=== PATIENT | female | born 1935 | race Caucasian/White ===

== ENCOUNTER 2016-05-15 13:16 | Outpatient (CLI) | payer MEDICARE, OTHER | END 2016-05-15 13:17 | disposition home or self-care (01) | DX: R01.2 Other cardiac sounds (principal) ==

== ENCOUNTER 2016-07-05 11:31 | Outpatient (CLI) | payer MEDICARE, OTHER | END 2016-07-05 11:32 | disposition home or self-care (01) | DX: S42.295A Other nondisplaced fracture of upper end of left humerus, initial encounter for closed fracture (principal) ==

== ENCOUNTER 2017-01-05 13:17 | Outpatient (CLI) | payer MEDICARE, OTHER ==
[2017-01-05] MEDS ORDERED: ALBUTEROL NEB 2.5 MG/3 ML INH SCH (14:00)
== END 2017-01-05 13:18 | disposition home or self-care (01) ==
LOC: RT 13:17
PROVIDERS: ATTEND Internal Medicine
DX: R05 Cough (principal)
CPT/HCPCS: 94060; J7613

== ENCOUNTER 2017-02-13 10:54 | Outpatient (CLI) | payer MEDICARE, OTHER ==
[~2017-02-13 10:54] MED LIST: IOPAMIDOL-300 100 ML VIAL ONE
[2017-02-13 11:17] LABS: CALCIUM 9.7 mg/dL (8.5-10.3); CREATININE 0.8 mg/dL (0.4-1.0); POTASSIUM 4.4 mmol/L (3.5-5.0)
[2017-02-13] MEDS ORDERED: IOPAMIDOL-300 100 ML VIAL IVP ONE ×2 (11:49)
--- NOTE | 2017-02-13 15:44 | CT Report ---
CT OF THE CHEST WITH CONTRAST: 02/13/2017 CLINICAL INDICATION: Chronic cough. TECHNIQUE: Axial CT images of the chest were obtained with 80 mL of Isovue-300 intravenously. FINDINGS: The heart and great vessels demonstrate mild atherosclerotic calcification. A calcified gr anuloma is seen in the superior segment of the left lower lobe. No focal infiltrate or noncalcified p ulmonary nodule is appreciated. No effusion or pneumothorax is present. No hilar or mediastinal adeno srinath is seen. The osseous structures demonstrate degenerative changes. Limited evaluation of upper a bdominal structures demonstrates calcified granulomas in the liver and spleen. The adrenal glands are unremarkable. IMPRESSION: CHANGES OF OLD GRANULOMATOUS DISEASE. NO SUSPICIOUS PULMONARY NODULE OR MASS LESION. NO INFILTRATE. In accordance with CT protocol optimization, one or more of the following dose reduction techniques w ere utilized for this exam: automated exposure control, adjustment of mA and/or KV based on patient size, or use of iterative reconstructive technique. 14:9:16 JOB #: [id number] EXT JOB #:[id number]
== END 2017-02-13 10:55 | disposition home or self-care (01) ==
LOC: LAB 10:54
PROVIDERS: ATTEND Internal Medicine
DX: R05 Cough (principal)
CPT/HCPCS: 36415; 71260; 80048; Q9967

== ENCOUNTER 2018-08-23 10:45 | Outpatient (CLI) | payer MEDICARE, OTHER ==
--- NOTE | 2018-08-25 11:10 | CT Report ---
Reason: CHRONIC COUGH Procedure Date: 08/23/2018 Accession Number: [id number] / [id number] Procedure: CT - Sinuses CPT Code: FULL RESULT: EXAM: CT SINUS EXAM DATE: 08/23/2018 11:02 AM. HISTORY: Chronic cough. COMPARISONS: None. TECHNIQUE: Routine multi-axial CT imaging performed through the sinuses. Iodinated IV contrast: None. Reconstructions: Multiplanar reformats. In accordance with CT protocol optimization, one or more of the following dose reduction techniques were utilized for this exam: automated exposure control, adjustment of mA and/or KV based on patient size, or use of iterative reconstructive technique. FINDINGS: RIGHT Frontal: Normal. Ethmoid: Minimal mucoperiosteal thickening. Maxillary: Normal. Sphenoid: Normal. Drainage Pathways: The frontal recess, ostiomeatal complex and sphenoethmoidal recess are patent and normal. LEFT Frontal: Normal. Ethmoid: Minimal mucoperiosteal thickening. Maxillary: Normal. Sphenoid: Normal. Drainage Pathways: The frontal recess, ostiomeatal complex and sphenoethmoidal recess are patent and normal. Nasal Cavity: Normal. No mass or significant anatomic abnormality evident. Osseous Structures: Unremarkable. Orbits: Unremarkable. Other: None. IMPRESSION: Minimal mucoperiosteal thickening in the ethmoid sinus distribution. RADIA
== END 2018-08-23 10:46 | disposition home or self-care (01) ==
LOC: DI 10:45
PROVIDERS: ATTEND Internal Medicine
DX: J01.90 Acute sinusitis, unspecified (principal); J32.9 Chronic sinusitis, unspecified; J34.89 Other specified disorders of nose and nasal sinuses; R05 Cough
CPT/HCPCS: 70486

== ENCOUNTER 2019-10-15 07:00 | Outpatient (CLI) | payer MEDICARE, OTHER ==
[2019-10-15 17:02] LABS: BILIRUBIN,URINE NEGATIVE (NEGATIVE); GLUCOSE, URINE (UA) NEGATIVE (NEGATIVE); KETONES,URINE (UA) NEGATIVE (NEGATIVE); LEUKOCYTE ESTERASE, URINE LARGE (NEGATIVE); NITRITE,URINE NEGATIVE (NEGATIVE); OCCULT BLOOD,URINE SMALL (NEGATIVE); PH,URINE 7.5 PH (5.0-7.5); PROTEIN,URINE NEGATIVE (NEGATIVE); UROBILINOGEN,URINE 0.2 (NORMAL) E.U./dL (NORMAL)
[2019-10-15 17:28] LABS: BACTERIA,URINE None Seen /HPF (None Seen); CLARITY,URINE CLEAR (CLEAR); RBC,URINE None Seen /HPF (0-5); SQUAMOUS EPITHELIAL CELL,UR RARE Squamous (<= Few); WBC CLUMPS,URINE PRESENT
== END 2019-10-15 23:59 | disposition home or self-care (01) ==
LOC: LAB.R 07:00
PROVIDERS: ATTEND Obstetrics & Gynecology
DX: N39.0 Urinary tract infection, site not specified (principal)
CPT/HCPCS: 81001; 87086

== ENCOUNTER 2020-05-11 15:28 | Outpatient (CLI) | payer MEDICARE, OTHER ==
[2020-05-11] MEDS ORDERED: IOVERSOL 320 100 ML VIAL IVP ONE ×3 (15:56→16:05)
--- NOTE | 2020-05-11 16:39 | CT Report ---
PROCEDURE: IVP INDICATIONS: GROSS HEMATURIA CONTRAST: IV CONTRAST: Optiray 320 ml: 100 PO CONTRAST: *NO PO CONTRAST TECHNIQUE: After the administration of intravenous contrast, 5 mm thick sections acquired from the diaphragms to the symphysis. 5 mm thick coronal and sagittal reformats were acquired. For radiation dose reducti on, the following was used: automated exposure control, adjustment of mA and/or kV according to leah ent size. COMPARISON: None. FINDINGS: Image quality: Excellent. Lung bases: Lung bases are clear. Heart size is normal. Urinary system: Small left greater than right bilateral renal cysts are present. Both kidneys are ot herwise normal in size and enhancement. Contrast-filled renal calyces are normal in morphology. Con trast filled portions of both ureters are normal in caliber. Bladder wall thickness is normal. Solid organs: Liver and spleen are normal in size and enhancement. Multiple hepatosplenic calcificat ions are present. Gallbladder is within normal limits Biliary system is non dilated. Pancreas enhan pierre normally. No adrenal nodules. Peritoneum and bowel: Bowel loops demonstrate normal wall thickness and caliber. No free fluid or a ir. Nodes and vessels: No retroperitoneal or mesenteric adenopathy by size criteria. Aorta and inferior vena cava are normal in size. Abdominal wall: No ventral hernias. Pelvis: No pathologic free pelvic fluid. No inguinal hernias or adenopathy. Bones: No suspicious bony lesions. No vertebral body compression fractures. IMPRESSION: 1. No evidence of urinary tract calcification, nor obstruction. 2. No evidence of renal neoplasm. 3. Remote granulomatous disease. Reviewed by: Kylah Conde MD on 05/11/2020 4:37 PM PST Approved by: Kylah Conde MD on 05/11/2020 4:37 PM PST Station ID: [id number]
== END 2020-05-11 15:29 | disposition home or self-care (01) ==
LOC: DI 15:28
PROVIDERS: ATTEND Urology
DX: R31.0 Gross hematuria (principal); I48.0 Paroxysmal atrial fibrillation; Z87.891 Personal history of nicotine dependence; N28.1 Cyst of kidney, acquired
CPT/HCPCS: 74178; Q9967

== ENCOUNTER 2021-09-15 13:35 | Outpatient (CLI) | payer MEDICARE, OTHER ==
--- NOTE | 2021-09-15 16:25 | XRAY Report ---
PROCEDURE: Knee 3 View LT INDICATIONS: JOINT EFFUSION, LEFT KNEE TECHNIQUE: 3 views of the left knee(s) were acquired. COMPARISON: None. FINDINGS: Bones: No fractures or dislocations. No suspicious bony lesions. Moderate medial and patellofemora l as well as mild lateral compartment narrowing. Minimal periarticular osteophytes are present withou t erosions. Soft tissues: Minimal joint effusion. No suspicious soft tissue calcifications. IMPRESSION: Tricompartmental arthritis most severe medially. Reviewed by: Bernadette Westfall MD on 09/15/2021 4:23 PM PDT Approved by: Bernadette Westfall MD on 09/15/2021 4:23 PM PDT Station ID: [id number]
== END 2021-09-15 23:59 | disposition home or self-care (01) ==
LOC: DI.N 13:35
PROVIDERS: ATTEND Physician Assistant
DX: M25.462 Effusion, left knee (principal); M17.12 Unilateral primary osteoarthritis, left knee

== ENCOUNTER 2021-09-21 17:24 | Outpatient (CLI) | payer MEDICARE, OTHER | END 2021-09-21 23:59 | disposition home or self-care (01) | LOC: LAB.N 17:24 | PROVIDERS: ATTEND Physician Assistant Medical | DX: M25.462 Effusion, left knee (principal) | CPT/HCPCS: 36415; 85379 ==

== ENCOUNTER 2021-11-15 08:08 | Outpatient (CLI) | payer MEDICARE, OTHER ==
--- NOTE | 2021-11-16 17:03 | Ultrasound Report ---
PROCEDURE: Ext Limited Non Vascular INDICATIONS: POSTERIOR KNEE PAIN TECHNIQUE: Real-time scanning was performed of the left knee, with image documentation. COMPARISON: None. FINDINGS: Focused ultrasound examination of left knee soft tissue shows a 7.8 x 0.4 x 2.7 cm anechoic collectio n within anterior left knee soft tissue. Minimal internal low-level echo is seen. No internal vascula rity is noted. No communication to the adjacent left knee joint is seen. IMPRESSION: Finding likely represent an organizing hematoma in left anterior knee soft tissue as abo ve. Reviewed by: Evan Green MD on 11/16/2021 5:02 PM PDT Approved by: Evan Green MD on 11/16/2021 5:02 PM PDT Station ID: [id number]
== END 2021-11-15 08:09 | disposition home or self-care (01) ==
LOC: DI 08:08
PROVIDERS: ATTEND Physician Assistant
DX: M25.562 Pain in left knee (principal)